=== PATIENT | female | born 1945 | race Caucasian/White ===

== ENCOUNTER 2023-11-16 22:09 | Emergency (ER) | payer MEDICARE ==
[~2023-11-16] VITALS: Ht 165.1 cm; Wt 61.4 kg
[2023-11-16 23:09] VITALS: BP 194/111; TEMP 97.8
[2023-11-16] MEDS ORDERED: Ketorolac 30 MG/ML VIAL IM ONE (23:30)
[2023-11-16] MEDS ORDERED: Amoxicillin/Clavulanate K+ 875/125 MG TAB PO ONE (23:30)
[2023-11-17] MEDS ORDERED: AMOXICILLIN 8751 TAB PO (00:25)
[2023-11-17] MEDS ORDERED: Home HYDROcodone/Acetaminophen 5/325 MG #4 TABS/PACK PO ONE (00:30)
[2023-11-17 00:46] VITALS: PULSE 75
== END 2023-11-17 00:46 | disposition home or self-care (01) ==
LOC: COL.ER 22:09
DX: H66.93 Otitis media, unspecified, bilateral (principal); K11.5 Sialolithiasis
CPT/HCPCS: J1885